=== PATIENT | male | born 1980 | race African-American/Black ===

== ENCOUNTER 2023-11-25 19:28 | Emergency (ER) | payer OTHER ==
[~2023-11-25] VITALS: Ht 180.3 cm; Wt 90.0 kg
[2023-11-26] MEDS ORDERED: NORCO 325 MG-51 TAB PO (00:47)
[2023-11-26 01:16] VITALS: BP 124/78; PULSE 76
== END 2023-11-26 01:16 | disposition home or self-care (01) ==
LOC: COL.ER 19:28
DX: S76.112A Strain of left quadriceps muscle, fascia and tendon, initial encounter (principal); S83.005A Unspecified dislocation of left patella, initial encounter; X50.1XXA Overexertion from prolonged static or awkward postures, initial encounter; Y93.67 Activity, basketball; Y92.310 Basketball court as the place of occurrence of the external cause
CPT/HCPCS: L1830; L1846